=== PATIENT | male | born 1980 | race Hispanic/Latino ===

== ENCOUNTER 2019-05-06 01:34 | Emergency (ER) | payer SELFPAY ==
[2019-05-06] MEDS ORDERED: LIDOCAINE 1% W/EPI 1:100,000 MDV 50 ML VIAL ONE ×2 (01:36→02:00)
[2019-05-06] MEDS ORDERED: CEFAZOLIN SODIUM 1 GM/VIAL ONE ×2 (01:59→02:05)
[2019-05-06] MEDS ORDERED: TETANUS & DIPHTHERIA TOX,ADULT 0.5 ML VIAL ONE ×2 (01:59→02:06)
[2019-05-06] MEDS ORDERED: WATER FOR INJ,STERILE 10 ML ONE (02:00)
[2019-05-06] MEDS ORDERED: IBUPROFEN 400 MG TAB ONE ×2 (02:05→02:06)
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
[2019-05-06 02:51] VITALS: TEMP 98.5
[2019-05-06 02:52] VITALS: BP 126/70; O2SAT 98
== END 2019-05-06 02:40 | disposition home or self-care (01) ==
LOC: ER 01:34
PROC: 0JQL0ZZ Repair Right Upper Leg Subcutaneous Tissue and Fascia, Open Approach (ICD-10-PCS; principal; 2019-05-06)
DX: S81.811A Laceration without foreign body, right lower leg, initial encounter (principal); X99.1XXA Assault by knife, initial encounter; Y93.89 Activity, other specified; Y92.9 Unspecified place or not applicable; Y99.0 Civilian activity done for income or pay; Z23 Encounter for immunization
CPT/HCPCS: 90471; 90714; 96372; 99285; J0690